=== PATIENT | male | born 1995 | race African-American/Black ===

== ENCOUNTER 2018-01-14 22:36 | Emergency (ER) | payer SELFPAY ==
[~2018-01-14] VITALS: Ht 175.3 cm; Wt 81.6 kg
--- NOTE | 2018-01-14 22:45 | NUR ---
PT TO ER BED 14. BIBRA FROM AIR BNB; "HAD AN EDIBLE WEED BROWNIE, FEELS OFF". PT PLACED IN GOWN AND ON SIDE LASTER. PT VSS/NAD NOTED/RESP EVEN UNLABORED/SKIN WARM AND DRY/DENIES N-V-D/AFEBRILE/AOX4. AWAITING MD HESS.
--- NOTE | 2018-01-14 22:57 | NUR ---
AT BEDSIDE FOR EVAL.
[2018-01-14] MEDS ORDERED: HALOPERIDOL LACTATE INJ 5 MG/ML VIAL IM ONE (23:00)
[2018-01-14] MEDS ORDERED: HALOPERIDOL LACTATE INJ 5 MG/ML VIAL ONE (23:00)
[2018-01-14] MEDS ORDERED: LORAZEPAM 1 MG TABLET ONE (23:00)
[2018-01-14] MEDS ORDERED: LORAZEPAM 1 MG TABLET PO ONE (23:00)
--- NOTE | 2018-01-14 23:05 | NUR ---
MEDICATED PER MD ORDERS.
--- NOTE | 2018-01-15 01:34 | NUR ---
PT RESTING QUIETLY, VSS. PT AROUSES TO VOICE.
--- NOTE | 2018-01-15 04:05 | NUR ---
PT RESTING QUIETLY, AROUSES TO VOICE. VSS. RN TO CONTINUE TO MONITOR PROVIDING SAFETY/COMFORT MEASURES.
--- NOTE | 2018-01-15 06:47 | NUR ---
PT RESTING QUIETLY, AROUSES TO VOICE. VSS. RN TO CONTINUE TO MONITOR PROVIDING SAFETY/COMFORT MEASURES.
--- NOTE | 2018-01-15 07:17 | NUR ---
REPORT GIVEN TO ROCAEL SYLVESTER FOR ENRIQUE.
[2018-01-15 09:42] VITALS: BP 115/70
--- NOTE | 2018-01-15 09:42 | NUR ---
PT. VERBALIZED UNDERSTANDING OF AFTERCARE INSTRUCTIONS.Patient discharged to home in stable condition. Written and verbal after care instructions given. Patient verbalizes understanding of instruction.
--- NOTE | 2018-01-15 09:42 | NUR ---
Patient discharged to home in stable condition. Written and verbal after care instructions given. Patient verbalizes understanding of instruction. ambulatory with a steady gait
== END 2018-01-15 09:43 | disposition home or self-care (01) ==
LOC: ER 22:38
DX: F41.9 Anxiety disorder, unspecified (principal); F12.10 Cannabis abuse, uncomplicated
CPT/HCPCS: 96372; 99283; A4606; J1630; Z7610